=== PATIENT | male | born 1995 ===

== ENCOUNTER 2018-12-14 03:47 | Emergency (ER) | payer SELFPAY ==
[~2018-12-14] VITALS: Ht 172.7 cm; Wt 83.7 kg
[2018-12-14 03:59] VITALS: BP 137/72
== END 2018-12-14 05:24 | disposition left against medical advice (07) ==
LOC: ED 05:18
DX: K29.20 Alcoholic gastritis without bleeding (principal); F10.10 Alcohol abuse, uncomplicated; Y90.9 Presence of alcohol in blood, level not specified
CPT/HCPCS: 36415; 80053; 83690; 85025; 85610; 99283; Q0162